=== PATIENT | male | born 1950 | race African-American/Black ===

== ENCOUNTER 2017-10-05 14:24 | Inpatient (IN) | payer MEDICARE, MEDICAID ==
[~2017-10-05] VITALS: Ht 190.5 cm; Wt 107.0 kg
[~2017-10-05 14:24] MED LIST: ALLO300T2 PO; CARV25TA PO; CLON0.1T PO; DILT240C10 PO; ENAL5TAB92 PO; FURO40TA PO; GLYB5TAB8 PO; INSUINJ49 SC; LOSA100T27 PO; OXYC10TA44 PO; POTA8TAB2 PO; SILD20TA12 PO; SIMV20TA90 PO
[2017-10-05 16:20] LABS: Albumin 2.7 g/dL (3.4-5.0); BUN/Creatinine Ratio 20.2; Bilirubin, Total 0.3 mg/dL (0.2-1.0); Calcium 8.2 mg/dL (8.5-10.1); Potassium 5.4 mmol/L (3.5-5.1); Total Protein 9.9 g/dL (6.4-8.2)
[2017-10-05 16:21] LABS: Basophils # (auto) 0.1 uL; Eosinophils # (auto) 0.1 uL; Eosinophils % (auto) 0.6 % (0.0-7.0); Hematocrit 39.7 % (41.0-53.0); Hemoglobin 13.2 g/dL (13.5-17.5); Lymphocytes % (auto) 9.1 % (10.0-50.0); Mean Corpuscular Hemoglobin 30.6 pg (28.0-32.0); Mean Corpuscular Hgb Conc. 33.2 g/dL (32.0-36.0); Mean Corpuscular Volume 92.1 fL (80.0-100.0); Monocytes # (auto) 1.5 uL; Monocytes % (auto) 13.5 % (0.0-12.0); Neutrophils # (auto) 8.2 uL; Neutrophils % (auto) 75.8 % (37.0-80.0); Platelet Count (auto) 273 10^3/uL (140-450); Red Blood Cells 4.31 10^6/uL (4.5-5.90); White Blood Cell 10.8 10^3/uL (4.4-10.8)
[2017-10-05] MEDS ORDERED: methylPREDNISolone SOD SUCC 125 MG/2 ML VL IV ONE (17:30)
[2017-10-05] MEDS ORDERED: LEVOFLOXACIN 500MG 100 ML IV ONE (17:30)
[2017-10-05] MEDS ORDERED: SODIUM CHLORIDE 0.9% 1,000 ML IV SCH (18:30)
[2017-10-05] MEDS ORDERED: DEXTROSE (50%) 50ML SYRG IV PRN (18:30)
[2017-10-05] MEDS ORDERED: NITROGLYCERIN 0.4 MG SL TAB SL PRN (18:30)
[2017-10-05] MEDS ORDERED: LEVOFLOXACIN 500MG 100 ML IV SCH (18:30)
[2017-10-05 19:04] LABS: Magnesium 2.1 mg/dL (1.6-2.6)
[2017-10-05 20:30] VITALS: BP 134/81
[2017-10-05 20:45] VITALS: BP 112/79
[2017-10-05 22:00] VITALS: BP 112/79
[2017-10-05] MEDS ORDERED: ALBUTEROL SULF 2.5 MG/0.5ML(0.5%) NEB SOLN NEB ONE (22:00)
[2017-10-05] MEDS ORDERED: HYDROcodone-ACET 5/325MG TAB PO PRN (22:15)
[2017-10-05 23:15] LABS: Basophils # (auto) 0 uL; Basophils % (auto) 0.4 % (0.0-2.0); Eosinophils # (auto) 0 uL; Hematocrit 39.1 % (41.0-53.0); Hemoglobin 12.7 g/dL (13.5-17.5); Lymphocytes # (auto) 0.4 uL; Lymphocytes % (auto) 3.7 % (10.0-50.0); Mean Corpuscular Hemoglobin 30.3 pg (28.0-32.0); Mean Corpuscular Hgb Conc. 32.5 g/dL (32.0-36.0); Mean Corpuscular Volume 93.2 fL (80.0-100.0); Monocytes # (auto) 0.2 uL; Neutrophils # (auto) 9.6 uL; Neutrophils % (auto) 93.9 % (37.0-80.0); Platelet Count (auto) 271 10^3/uL (140-450); Red Blood Cells 4.19 10^6/uL (4.5-5.90); Red Cell Distribution Width 15.9 % (11.8-14.3); White Blood Cell 10.2 10^3/uL (4.4-10.8)
[2017-10-06] VITALS (8 sets, daily range): BP systolic 112–145; BP diastolic 74–82
[2017-10-06] MEDS: PROMETHAZINE W/CODEINE 5 ML ORAL SYRUP PO SCH ×4 (00:26→18:16)
[2017-10-06] MEDS: ONDANSETRON HCL 4 MG/2 ML VIAL IV SCH ×4 (00:27→18:16)
[2017-10-06] MEDS: ACCU-CHEK COMFORT CURVE STRIP VI SCH ×4 (00:33→18:21)
[2017-10-06] MEDS: InsuLIN REG 1unit/0.01ml Soln (100units/ml) SC SCH ×4 (00:41→18:00)
[2017-10-06] MEDS: ACETAMINOPHEN 325 MG TAB PO SCH ×2 (00:41→05:36)
[2017-10-06] MEDS: HYDROcodone-ACET 5/325MG TAB PO SCH ×2 (02:00→05:47)
[2017-10-06 05:58] LABS: Basophils # (auto) 0 uL; Basophils % (auto) 0.4 % (0.0-2.0); Eosinophils # (auto) 0 uL; Hematocrit 41.2 % (41.0-53.0); Hemoglobin 13.7 g/dL (13.5-17.5); Lymphocytes # (auto) 0.5 uL; Lymphocytes % (auto) 5.7 % (10.0-50.0); Mean Corpuscular Hgb Conc. 33.2 g/dL (32.0-36.0); Mean Corpuscular Volume 93.3 fL (80.0-100.0); Monocytes # (auto) 0.2 uL; Monocytes % (auto) 2.1 % (0.0-12.0); Neutrophils # (auto) 8.5 uL; Neutrophils % (auto) 91.8 % (37.0-80.0); Nucleated Red Blood Cells % 0.1 %; Platelet Count (auto) 259 10^3/uL (140-450); Red Blood Cells 4.42 10^6/uL (4.5-5.90); Red Cell Distribution Width 15.8 % (11.8-14.3); White Blood Cell 9.3 10^3/uL (4.4-10.8)
[2017-10-06] MEDS: ALBUTEROL SULF 2.5 MG/0.5ML(0.5%) NEB SOLN NEB SCH ×7 (06:00→19:09)
[2017-10-06] MEDS ORDERED: ALBUTEROL SULF 2.5 MG/0.5ML(0.5%) NEB SOLN NEB SCH (06:00)
[2017-10-06] MEDS: SODIUM CHLORIDE 0.9% 1,000 ML IV SCH (09:30)
[2017-10-06 09:42] LABS: Albumin 2.5 g/dL (3.4-5.0); BUN/Creatinine Ratio 20.5; Bilirubin, Total 0.2 mg/dL (0.2-1.0); Calcium 7.8 mg/dL (8.5-10.1); Potassium 4.8 mmol/L (3.5-5.1); Total Protein 9.6 g/dL (6.4-8.2)
[2017-10-06] MEDS ORDERED: DEXTROSE (50%) 50ML SYRG IV PRN (10:00)
[2017-10-06] MEDS: MORPHINE SULFATE 4 MG/ML SYR/VIAL IV PRN ×3 (12:59→22:10)
[2017-10-07] MEDS: PROMETHAZINE W/CODEINE 5 ML ORAL SYRUP PO SCH ×5 (00:10→22:27)
[2017-10-07] MEDS: ONDANSETRON HCL 4 MG/2 ML VIAL IV SCH ×5 (00:10→22:27)
[2017-10-07] MEDS: ACCU-CHEK COMFORT CURVE STRIP VI SCH ×5 (00:20→22:28)
[2017-10-07] MEDS: InsuLIN REG 1unit/0.01ml Soln (100units/ml) SC SCH ×5 (00:21→22:28)
[2017-10-07] MEDS: SODIUM CHLORIDE 0.9% 1,000 ML IV SCH ×2 (02:10→18:46)
[2017-10-07 05:00] VITALS: BP 147/70
[2017-10-07 05:35] LABS: Basophils # (auto) 0 uL; Basophils % (auto) 0.2 % (0.0-2.0); Eosinophils # (auto) 0 uL; Eosinophils % (auto) 0.1 % (0.0-7.0); Hematocrit 41.4 % (41.0-53.0); Hemoglobin 13.7 g/dL (13.5-17.5); Lymphocytes # (auto) 1.4 uL; Lymphocytes % (auto) 7.1 % (10.0-50.0); Mean Corpuscular Hemoglobin 30.6 pg (28.0-32.0); Mean Corpuscular Volume 92.7 fL (80.0-100.0); Monocytes # (auto) 1.9 uL; Monocytes % (auto) 10.1 % (0.0-12.0); Neutrophils # (auto) 15.7 uL; Neutrophils % (auto) 82.5 % (37.0-80.0); Nucleated Red Blood Cells % 0.1 %; Platelet Count (auto) 306 10^3/uL (140-450); Red Blood Cells 4.47 10^6/uL (4.5-5.90); Red Cell Distribution Width 15.8 % (11.8-14.3)
[2017-10-07 05:58] LABS: Calcium 8.6 mg/dL (8.5-10.1); Potassium 4.6 mmol/L (3.5-5.1)
[2017-10-07] MEDS: ALBUTEROL SULF 2.5 MG/0.5ML(0.5%) NEB SOLN NEB SCH ×4 (06:10→19:50)
[2017-10-07 09:00] VITALS: BP 145/94
[2017-10-07] MEDS: MORPHINE SULFATE 4 MG/ML SYR/VIAL IV PRN ×2 (09:36→18:13)
[2017-10-07 09:55] LABS: Calcium 8.8 mg/dL (8.5-10.1); Potassium 4.9 mmol/L (3.5-5.1)
[2017-10-07] MEDS ORDERED: cefTRIAXone 1GM/10ml IVPUSH 10 ML IV ONE (10:00)
[2017-10-07] MEDS ORDERED: AZITHROMYCIN 250 MG TAB PO ONE (10:00)
[2017-10-07] MEDS ORDERED: INSDRIP IV (12:39)
[2017-10-07] MEDS ORDERED: FLUT1SPR5 (12:39)
[2017-10-07] MEDS ORDERED: AMIO200T33 PO (12:39)
[2017-10-07] MEDS ORDERED: PANT40TA2 PO (12:39)
[2017-10-07] MEDS ORDERED: GLIP-115 PO (12:39)
[2017-10-07] MEDS ORDERED: CLON0.3T PO (12:39)
[2017-10-07] MEDS ORDERED: FLUT50SP (12:39)
[2017-10-07] MEDS ORDERED: FURO40TA4 PO (12:39)
[2017-10-07] MEDS ORDERED: HYDR-4072 PO (12:39)
[2017-10-07] MEDS ORDERED: SPIR25TA89 PO (12:39)
[2017-10-07] MEDS ORDERED: NITR0.4S29 SL (12:39)
[2017-10-07 13:05] VITALS: BP 126/71
[2017-10-07 13:13] VITALS: BP 133/82
[2017-10-07 17:00] VITALS: BP 131/84
[2017-10-07 21:35] VITALS: BP 132/78
[2017-10-07] MEDS: DOCUSATE SOD 100 MG CAP PO SCH (22:00)
[2017-10-07] MEDS ORDERED: ATORVASTATIN 20 MG TAB PO SCH (22:00)
[2017-10-07] MEDS: SPIRONOLACTONE 25 MG TAB PO SCH (22:00)
[2017-10-07] MEDS: AMIODARONE HCL 200 MG TAB PO SCH (22:27)
[2017-10-07] MEDS: CARVEDILOL 12.5 MG TAB PO SCH (22:27)
[2017-10-08 05:00] VITALS: BP 106/63
[2017-10-08] MEDS: ONDANSETRON HCL 4 MG/2 ML VIAL IV SCH ×2 (05:45→12:00)
[2017-10-08 05:59] LABS: Hematocrit 39.7 % (41.0-53.0); Hemoglobin 12.9 g/dL (13.5-17.5); Mean Corpuscular Hemoglobin 30.2 pg (28.0-32.0); Mean Corpuscular Hgb Conc. 32.5 g/dL (32.0-36.0); Mean Corpuscular Volume 93.1 fL (80.0-100.0); Platelet Count (auto) 251 10^3/uL (140-450); Red Blood Cells 4.26 10^6/uL (4.5-5.90); Red Cell Distribution Width 15.9 % (11.8-14.3); White Blood Cell 13.8 10^3/uL (4.4-10.8)
[2017-10-08] MEDS: PROMETHAZINE W/CODEINE 5 ML ORAL SYRUP PO SCH ×2 (06:02→12:00)
[2017-10-08] MEDS: MORPHINE SULFATE 4 MG/ML SYR/VIAL IV PRN (06:02)
[2017-10-08] MEDS: ACCU-CHEK COMFORT CURVE STRIP VI SCH ×2 (06:02→12:00)
[2017-10-08] MEDS: SPIRONOLACTONE 25 MG TAB PO SCH (06:02)
[2017-10-08] MEDS: InsuLIN REG 1unit/0.01ml Soln (100units/ml) SC SCH ×2 (06:02→12:00)
[2017-10-08 06:11] LABS: Band Neutrophils % (manual) 0; Basophils % (manual) 0 (0.0-2.0); Blast Cells 0; Metamyelocytes % 0; Myelocytes % 0; Promyelocytes % 0; Reactive Lymphocytes 0
[2017-10-08 06:47] LABS: Eosinophils % (manual) 1 (0-7); Lymphocytes % (manual) 15 (10.0-50.0); Monocytes % (manual) 3 (0-12)
[2017-10-08] MEDS: ALBUTEROL SULF 2.5 MG/0.5ML(0.5%) NEB SOLN NEB SCH ×2 (07:05→10:23)
[2017-10-08 07:59] VITALS: BP 126/76
[2017-10-08 08:09] LABS: Albumin 2.3 g/dL (3.4-5.0); BUN/Creatinine Ratio 21.9; Bilirubin, Total 0.2 mg/dL (0.2-1.0); Calcium 8.1 mg/dL (8.5-10.1); Total Protein 8.4 g/dL (6.4-8.2)
[2017-10-08] MEDS: DOCUSATE SOD 100 MG CAP PO SCH (08:55)
[2017-10-08] MEDS: CARVEDILOL 12.5 MG TAB PO SCH (08:59)
[2017-10-08] MEDS: AMIODARONE HCL 200 MG TAB PO SCH (09:00)
[2017-10-08] MEDS ORDERED: cefTRIAXone 1GM/10ml IVPUSH 10 ML IV SCH (09:00)
[2017-10-08] MEDS ORDERED: ENALAPRIL MALEATE 2.5 MG TAB PO SCH (10:00)
[2017-10-08] MEDS ORDERED: PANTOPRAZOLE 40 MG TAB PO SCH (10:00)
[2017-10-08] MEDS ORDERED: ALLOPURINOL 300 MG TAB PO SCH (10:00)
[2017-10-08] MEDS ORDERED: FUROSEMIDE 20 MG TAB PO SCH (10:00)
[2017-10-08] MEDS ORDERED: DILTIAZEM HCL 120MG ER CAP PO SCH (10:00)
[2017-10-08] MEDS ORDERED: cloNIDine HCL 0.1 MG TAB PO SCH (10:00)
[2017-10-08] MEDS ORDERED: AZITHROMYCIN 250 MG TAB PO SCH (10:00)
[2017-10-08] MEDS ORDERED: FLUTICASONE PROP NASAL SPR 0.05 % (50MCG) 16GM EACHNOSTRI SCH (10:00)
[2017-10-08] MEDS: SODIUM CHLORIDE 0.9% 1,000 ML IV SCH (11:30)
[2017-10-08 12:20] VITALS: BP 113/71
== END 2017-10-08 16:17 | disposition home or self-care (01) | DRG 682 ==
LOC: ER 14:24 → TELE 14:25 → TELE-WESTW 20:30
PROVIDERS: ADMIT Internal Medicine; ATTEND Internal Medicine
DX: N17.9 Acute kidney failure, unspecified (principal); J18.9 Pneumonia, unspecified organism; E43 Unspecified severe protein-calorie malnutrition; I13.0 Hypertensive heart and chronic kidney disease with heart failure and stage 1 through stage 4 chronic kidney disease, or unspecified chronic kidney disease; E11.21 Type 2 diabetes mellitus with diabetic nephropathy; I50.9 Heart failure, unspecified; I48.91 Unspecified atrial fibrillation; J44.0 Chronic obstructive pulmonary disease with (acute) lower respiratory infection; N18.9 Chronic kidney disease, unspecified; E11.22 Type 2 diabetes mellitus with diabetic chronic kidney disease; E78.5 Hyperlipidemia, unspecified; E83.51 Hypocalcemia; M10.9 Gout, unspecified; E87.5 Hyperkalemia; Z82.49 Family history of ischemic heart disease and other diseases of the circulatory system; Z85.46 Personal history of malignant neoplasm of prostate; Z68.29 Body mass index [BMI] 29.0-29.9, adult; Z90.79 Acquired absence of other genital organ(s); Z95.0 Presence of cardiac pacemaker; Z88.0 Allergy status to penicillin; Z90.49 Acquired absence of other specified parts of digestive tract
CPT/HCPCS: 36415; 71046; 71250; 80048; 80053; 82962; 83605; 83735; 83880; 84132; 84484; 85007; 85025; 85027; 87040; 93005; 94640; 96361; 96365; 96375; 99291; J1815; J1956; J2405

== ENCOUNTER 2017-11-26 14:51 | Inpatient (IN) | payer MEDICARE, MEDICAID ==
[~2017-11-26] VITALS: Ht 30.5 cm; Wt 102.5 kg
[~2017-11-26 14:51] MED LIST changes: +AMIO200T33 PO; -CLON0.1T PO; +CLON0.3T PO; +FLUT1SPR5; +FLUT50SP; -FURO40TA PO; +FURO40TA4 PO; +GLIP-115 PO; +HYDR-4072 PO; +INSDRIP IV; +NITR0.4S29 SL; +PANT40TA2 PO; +SPIR25TA89 PO
[2017-11-26 17:00] VITALS: BP 92/61
[2017-11-26] MEDS ORDERED: CALCIUM GLUC 4.65meq/50ml D5AE 50 ML IV ONE (17:00)
[2017-11-26 17:29] LABS: Anion Gap 8 (5-15); BUN/Creatinine Ratio 23.7; Blood Urea Nitrogen 55 mg/dL (7-18); Calcium 8.2 mg/dL (8.5-10.1); Carbon Dioxide 20 mmol/L (21-32); Chloride 106 mmol/L (98-107); GFR African American 36 mL/min; GFR Non-African American 30 mL/min; Glucose 122 mg/dL (74-106); Potassium 5.3 mmol/L (3.5-5.1); Sodium 134 mmol/L (136-145)
[2017-11-26] MEDS ORDERED: DEXTROSE (50%) 50ML SYRG IV PRN (17:30)
[2017-11-26] MEDS ORDERED: HYDROcodone-ACET 10/325MG TAB PO PRN (17:45)
[2017-11-26] MEDS ORDERED: NITROGLYCERIN 0.4 MG SL TAB SL PRN (17:45)
[2017-11-26] MEDS ORDERED: FLUTICASONE PROP NASAL SPR 0.05 % (50MCG) 16GM EACHNOSTRI ONE (17:45)
[2017-11-26] MEDS: ACCU-CHEK COMFORT CURVE STRIP VI SCH (18:00)
[2017-11-26] MEDS: SODIUM CHLORIDE 0.9% 1,000 ML IV SCH (18:15)
[2017-11-26] MEDS: SILDENAFIL CITRATE 20 MG TAB PO SCH (20:00)
[2017-11-26 22:00] VITALS: BP 100/61
[2017-11-26] MEDS ORDERED: ATORVASTATIN 20 MG TAB PO SCH (22:00)
[2017-11-26] MEDS: AMIODARONE HCL 200 MG TAB PO SCH (22:00)
[2017-11-26] MEDS: CARVEDILOL 12.5 MG TAB PO SCH (22:00)
[2017-11-26 22:48] VITALS: BP 100/61
[2017-11-27] VITALS (9 sets, daily range): BP systolic 95–129; BP diastolic 65–78
[2017-11-27] MEDS: InsuLIN REG 1unit/0.01ml Soln (100units/ml) SC SCH ×4 (00:48→13:54)
[2017-11-27 05:51] LABS: Basophils # (auto) 0.1 uL; Basophils % (auto) 1.1 % (0.0-2.0); Eosinophils # (auto) 0.1 uL; Eosinophils % (auto) 0.9 % (0.0-7.0); Hematocrit 34.9 % (41.0-53.0); Hemoglobin 11.5 g/dL (13.5-17.5); Lymphocytes # (auto) 1.2 uL; Lymphocytes % (auto) 11.9 % (10.0-50.0); Mean Corpuscular Hemoglobin 30.1 pg (28.0-32.0); Mean Corpuscular Volume 91.1 fL (80.0-100.0); Monocytes # (auto) 0.9 uL; Neutrophils % (auto) 77.1 % (37.0-80.0); Nucleated Red Blood Cells % 0.1 %; Platelet Count (auto) 331 10^3/uL (140-450); Red Blood Cells 3.83 10^6/uL (4.5-5.90); Red Cell Distribution Width 16.2 % (11.8-14.3); White Blood Cell 10.4 10^3/uL (4.4-10.8)
[2017-11-27] MEDS: ACCU-CHEK COMFORT CURVE STRIP VI SCH ×3 (06:00→13:53)
[2017-11-27 06:31] LABS: Calcium 8.3 mg/dL (8.5-10.1); Potassium 5.1 mmol/L (3.5-5.1)
[2017-11-27 06:35] LABS: Albumin 2.3 g/dL (3.4-5.0); BUN/Creatinine Ratio 22.1
[2017-11-27 06:38] LABS: Bilirubin, Total 0.4 mg/dL (0.2-1.0); Total Protein 8.9 g/dL (6.4-8.2)
[2017-11-27 06:57] LABS: Urine Bacteria FEW /hpf (None Seen); Urine Blood Negative /uL (Negative); Urine Mucus FEW (None Seen); Urine Specific Gravity 1.014 (1.001-1.035); Urine WBC 219 /hpf (0 - 3); Urine WBC Clumps PRESENT /hpf (None Seen)
[2017-11-27] MEDS: SILDENAFIL CITRATE 20 MG TAB PO SCH ×2 (08:00→14:23)
[2017-11-27] MEDS ORDERED: cloNIDine HCL 0.1 MG TAB PO SCH (10:00)
[2017-11-27] MEDS ORDERED: ALLOPURINOL 300 MG TAB PO SCH (10:00)
[2017-11-27] MEDS: CARVEDILOL 12.5 MG TAB PO SCH (10:00)
[2017-11-27] MEDS ORDERED: PANTOPRAZOLE 40 MG TAB PO SCH (10:00)
[2017-11-27] MEDS ORDERED: FUROSEMIDE 40 MG/4 ML VIAL IV SCH (10:00)
[2017-11-27] MEDS ORDERED: DILTIAZEM HCL 120MG ER CAP PO SCH (10:00)
[2017-11-27] MEDS: AMIODARONE HCL 200 MG TAB PO SCH (11:30)
[2017-11-27] MEDS: SODIUM CHLORIDE 0.9% 1,000 ML IV SCH (13:30)
== END 2017-11-27 16:45 | disposition home or self-care (01) | DRG 641 ==
LOC: TELE-WESTW 14:51
PROVIDERS: ADMIT Internal Medicine; ATTEND Internal Medicine
DX: E87.5 Hyperkalemia (principal); E44.0 Moderate protein-calorie malnutrition; E11.21 Type 2 diabetes mellitus with diabetic nephropathy; I48.91 Unspecified atrial fibrillation; N18.4 Chronic kidney disease, stage 4 (severe); I12.9 Hypertensive chronic kidney disease with stage 1 through stage 4 chronic kidney disease, or unspecified chronic kidney disease; E78.5 Hyperlipidemia, unspecified; I25.10 Atherosclerotic heart disease of native coronary artery without angina pectoris; M10.9 Gout, unspecified; Z82.49 Family history of ischemic heart disease and other diseases of the circulatory system; E11.22 Type 2 diabetes mellitus with diabetic chronic kidney disease; Z85.46 Personal history of malignant neoplasm of prostate; Z95.0 Presence of cardiac pacemaker; Z90.49 Acquired absence of other specified parts of digestive tract; Z79.899 Other long term (current) drug therapy; Z88.0 Allergy status to penicillin
CPT/HCPCS: 36415; 71045; 80048; 80053; 81001; 82962; 84484; 85025; 93005; J0610; J1815

== ENCOUNTER 2018-11-05 09:15 | Emergency (ER) | payer MEDICARE, MEDICAID ==
[~2018-11-05] VITALS: Ht 190.5 cm; Wt 90.7 kg
[~2018-11-05 09:15] MED LIST changes: +ENAL5TAB PO; -ENAL5TAB92 PO; +LOSA-49 PO; -LOSA100T27 PO; +SPIR25TA8 PO; -SPIR25TA89 PO
[2018-11-05] MEDS ORDERED: SODIUM CHLORIDE 0.9% 1,000 ML IV ONE (09:34)
[2018-11-05] MEDS ORDERED: KETOROLAC TROMETH 30 MG/ML 1ML VIAL IV ONE (11:00)
[2018-11-05 11:17] LABS: Urine Bacteria MOD /hpf (None Seen); Urine Blood Negative /uL (Negative); Urine Specific Gravity 1.016 (1.001-1.035); Urine WBC 2 /hpf (0 - 3)
[2018-11-05 11:28] LABS: Basophils # (auto) 0.1 uL; Eosinophils # (auto) 0.1 uL; Lymphocytes # (auto) 0.8 uL; White Blood Cell 9.9 10^3/uL (4.4-10.8)
[2018-11-05 11:31] LABS: Basophils % (auto) 1.1 % (0.0-2.0); Eosinophils % (auto) 0.6 % (0.0-7.0); Hematocrit 38.5 % (41.0-53.0); Hemoglobin 12.2 g/dL (13.5-17.5); Lymphocytes % (auto) 8.3 % (10.0-50.0); Mean Corpuscular Hemoglobin 27.1 pg (28.0-32.0); Mean Corpuscular Hgb Conc. 31.6 g/dL (32.0-36.0); Mean Corpuscular Volume 85.8 fL (80.0-100.0); Monocytes # (auto) 0.5 uL; Monocytes % (auto) 5.3 % (0.0-12.0); Neutrophils # (auto) 8.4 uL; Neutrophils % (auto) 84.7 % (37.0-80.0); Nucleated Red Blood Cells % 0.2 %; Platelet Count (auto) 267 10^3/uL (140-450); Red Blood Cells 4.49 10^6/uL (4.5-5.90); Red Cell Distribution Width 18.6 % (11.8-14.3)
[2018-11-05 11:45] LABS: Anion Gap 5 (5-15); Blood Urea Nitrogen 39 mg/dL (7-18); Calcium 8.2 mg/dL (8.5-10.1); Carbon Dioxide 23 mmol/L (21-32); Chloride 108 mmol/L (98-107); Glucose 150 mg/dL (74-106); Potassium 5.3 mmol/L (3.5-5.1); Sodium 136 mmol/L (136-145)
[2018-11-05] MEDS ORDERED: ALBUTEROL SULF 2.5 MG/0.5ML(0.5%) NEB SOLN NEB STA (11:49)
[2018-11-05 11:50] LABS: Alanine Aminotransferase 20 U/L (16-61); Alkaline Phosphatase 109 U/L (45-117); Aspartate Aminotransferase 13 U/L (15-37); BUN/Creatinine Ratio 20.1; Bilirubin, Total 0.4 mg/dL (0.2-1.0); GFR African American 44 mL/min; GFR Non-African American 37 mL/min; Total Protein 8.9 g/dL (6.4-8.2)
[2018-11-05] MEDS ORDERED: DEXTROSE (50%) 50ML SYRG IV ONE (12:00)
[2018-11-05] MEDS ORDERED: CALCIUM GLUC 4.65meq/50ml D5AE 50 ML IV ONE (12:00)
[2018-11-05] MEDS ORDERED: LEVOFLOXACIN 500 MG TAB PO ONE (12:00)
[2018-11-05] MEDS ORDERED: InsuLIN REG 1unit/0.01ml Soln (100units/ml) IV ONE (12:00)
[2018-11-05] MEDS ORDERED: SODIUM BICARBONATE 8.4% INJ 50ML SYRINGE IV ONE (12:00)
[2018-11-05] MEDS ORDERED: ONDANSETRON HCL 4 MG/2 ML VIAL IV ONE (14:45)
[2018-11-05] MEDS ORDERED: MORPHINE SULF INJ 2 MG/ML SYRINGE 1ML IV ONE (14:45)
[2018-11-05 17:42] VITALS: BP 132/78
[2018-11-15] MEDS ORDERED: FURO40TA4 PO (19:24)
[2018-11-15] MEDS ORDERED: GLIP-115 PO (19:28)
[2018-11-15] MEDS ORDERED: SIMV-8 PO (19:28)
[2018-11-15] MEDS ORDERED: SPIR25TA8 PO (19:28)
== END 2018-11-05 17:44 | disposition home or self-care (01) ==
LOC: ER 09:15 → EDBD 09:15 → ER 17:44
DX: N39.0 Urinary tract infection, site not specified (principal); E87.5 Hyperkalemia; E11.22 Type 2 diabetes mellitus with diabetic chronic kidney disease; I13.0 Hypertensive heart and chronic kidney disease with heart failure and stage 1 through stage 4 chronic kidney disease, or unspecified chronic kidney disease; N18.9 Chronic kidney disease, unspecified; I50.9 Heart failure, unspecified; E78.5 Hyperlipidemia, unspecified; J45.909 Unspecified asthma, uncomplicated; I48.91 Unspecified atrial fibrillation; Z90.49 Acquired absence of other specified parts of digestive tract; Z79.4 Long term (current) use of insulin; Z95.0 Presence of cardiac pacemaker; Z88.0 Allergy status to penicillin; Z79.899 Other long term (current) drug therapy
CPT/HCPCS: 36415; 71045; 74176; 80053; 81001; 82962; 84132; 84484; 85025; 94640; 96361; 96365; 96375; 99284; J0610; J1815; J1885; J2270; J2405; J7030; J7042; J7611

== ENCOUNTER → 2019-10-17 | Emergency (ER) | payer MEDICARE, MEDICAID ==
[~2019-10-17] MED LIST changes: -ALLO300T2 PO; +CALCIUM CHLOR(10%) 100MG/ML 10ML SYRINGE IV ONE; -ENAL5TAB PO; +EPINEPHrine HCL 1 MG/10 ML SYRG IV ONE; +EPINEPHrine HCL 1 MG/10 ML SYRG ONE; -GLIP-115 PO; +GLIP5TAB12 PO; -GLYB5TAB8 PO; -LOSA-49 PO; -OXYC10TA44 PO; -POTA8TAB2 PO; -SILD20TA12 PO; +SIMV-8 PO; -SIMV20TA90 PO; +SODIUM BICARBONATE 8.4% INJ 50ML SYRINGE IV ONE
[2019-10-17 10:14] VITALS: BP 0/0
[2019-10-17 10:29] LABS: Hematocrit 26.4 % (41.0-53.0); Hemoglobin 7.5 g/dL (13.5-17.5); Mean Corpuscular Hemoglobin 20.2 pg (28.0-32.0); Mean Corpuscular Hgb Conc. 28.2 g/dL (32.0-36.0); Mean Corpuscular Volume 71.5 fL (80.0-100.0); Platelet Count (auto) 201 10^3/uL (140-450); Red Cell Distribution Width 22.8 % (11.8-14.3); White Blood Cell 12.7 10^3/uL (4.4-10.8)
[2019-10-17 10:31] LABS: Basophils % (manual) 0 (0.0-2.0); Blast Cells 0; Eosinophils % (manual) 0 (0-7); Myelocytes % 0; Promyelocytes % 0; Reactive Lymphocytes 0
[2019-10-17 10:45] LABS: Albumin 2.2 g/dL (3.4-5.0); Calcium 8.3 mg/dL (8.5-10.1)
[2019-10-17 10:50] LABS: Bilirubin, Total 0.7 mg/dL (0.2-1.0); Total Protein 7.2 g/dL (6.4-8.2)
[2019-10-17 11:09] LABS: BUN/Creatinine Ratio 24.6
[2019-10-17 11:57] LABS: Band Neutrophils % (manual) 1; Lymphocytes % (manual) 9 (10.0-50.0); Metamyelocytes % 1; Monocytes % (manual) 9 (0-12)
== END | disposition expired ==
LOC: EDUNIT# 10:00 → ER 10:08 → EDBD 10:08
DX: I46.9 Cardiac arrest, cause unspecified (principal); J96.90 Respiratory failure, unspecified, unspecified whether with hypoxia or hypercapnia; J45.909 Unspecified asthma, uncomplicated; I48.91 Unspecified atrial fibrillation; I13.0 Hypertensive heart and chronic kidney disease with heart failure and stage 1 through stage 4 chronic kidney disease, or unspecified chronic kidney disease; E11.22 Type 2 diabetes mellitus with diabetic chronic kidney disease; N18.9 Chronic kidney disease, unspecified; I50.9 Heart failure, unspecified; E78.5 Hyperlipidemia, unspecified; Z90.49 Acquired absence of other specified parts of digestive tract; Z79.4 Long term (current) use of insulin; Z79.899 Other long term (current) drug therapy; Z88.0 Allergy status to penicillin
CPT/HCPCS: 31500; 36415; 80053; 84484; 85007; 85027; 92950; 99291; J0171